=== PATIENT | female | born 1970 | race Caucasian/White ===

== ENCOUNTER 2022-03-07 07:59 | Outpatient (RCR) | payer OTHER, MEDICAID, SELFPAY | END 2022-03-08 11:42 | disposition home or self-care (01) | PROVIDERS: PCP Family Medicine; Visit Provider Family Medicine | DX: M21.41 Flat foot [pes planus] (acquired), right foot (principal); M25.571 Pain in right ankle and joints of right foot; Z51.89 Encounter for other specified aftercare | CPT/HCPCS: 97161; 97760 ==

== ENCOUNTER 2022-03-09 08:59 | Outpatient (CLI) | payer OTHER, MEDICAID, SELFPAY ==
--- NOTE | 2022-03-09 09:15 | MR_ITS ---
[address] [address] Phone:?[phone] Fax:?[phone] Referring Physician Information: Chasidy Milan [address] [facility] [address] Phone:?[phone] Fax:?[phone] Patient:Jorge A Rodriguez D.O.B:?1970 Sex:?Female Phone:?[phone] [facility] MRN:?[id number] Exam Date:?03/09/2022 ? EXAM: MRI EXAMINATION OF THE LEFT KNEE CLINICAL INFORMATION: Left knee pain. No history of surgery to this area. Evaluate articular cartilage. TECHNICAL INFORMATION: And coronal PD, T2 and STIR. Axial PD and T2 fat saturation. Sagittal PD and T2 fat saturation images acquired. INTERPRETATION: Bones: Localized mild subchondral edema signal involves the weightbearing surface of the lateral tibial plateau. No evidence for an occult fracture. No other abnormal bone marrow edema pattern is identified. Ligaments and tendons: The medial collateral ligament is intact, without acute sprain or tear. The iliotibial band, fibular collateral ligament, biceps femoris tendon and popliteus tendon all are intact. The anterior cruciate ligament is intact without acute sprain or tear. The posterior cruciate ligament is intact. Extensor Mechanism: The patellar and quadriceps tendons are intact. The medial and lateral retinacula are intact. Knee Joint: There is a small knee joint effusion. No discrete popliteal cyst. There is no discrete loose body seen within the joint. Medial Compartment: Horizontal signal within the body of the medial meniscus close approaches and likely extends as undersurface tear. No tearing involving the anterior or posterior horns. No displaced flap fragment or parameniscal cyst. Grade II chondromalacia involves the central surface of the medial femoral condyle and continues towards the posterior lateral surface. No other significant changes of chondromalacia. Lateral Compartment: There is no evidence for discrete lateral meniscal tear. No displaced flap fragment or parameniscal cyst. Series 6 image 21 as well as series 8 image 23 demonstrate a 0.8 x 0.6 cm full- thickness chondral defect just posterior to the central surface of the lateral tibial plateau. No other significant changes of chondromalacia. Patellofemoral articulation: There are changes of chondromalacia along the inferior 2/3-3/4 of the patella, including full-thickness loss of the medial facet. Trochlear chondromalacia includes full-thickness loss of the superior one third of the lateral trochlear groove. CONCLUSION:?The image quality is somewhat degraded by body habitus. 1. Horizontal signal within the medial meniscus closely approaches and likely extends as undersurface tear within the body. 2. Grade II chondromalacia of the central surface of the medial femoral condyle continues towards the posterior lateral surface. 3. There is an 8 x 6 mm full-thickness chondral defect of the weightbearing surface of the lateral tibial plateau. No lateral meniscal tear. 4. Patellofemoral chondromalacia includes full-thickness cartilage loss involving the inferior three fourths of the medial patellar facet. 5. There is a small joint effusion, without loose body. [facility] Electronically signed on 03/09/2022 2:00:00 PM by Henry Peters M.D.
--- NOTE | 2022-03-09 10:15 | MR_ITS ---
[address] [address] Phone:?[phone] Fax:?[phone] Referring Physician Information: Chasidy Milan [address] [facility] [address] Phone:?[phone] Fax:?[phone] Patient:Jorge A Rodriguez D.O.B:?1970 Sex:?Female Phone:?[phone] [facility] MRN:?[id number] Exam Date:?03/09/2022 ? EXAM: MRI EXAMINATION OF THE RIGHT KNEE CLINICAL INFORMATION: Right knee pain. No history of surgery to this area. Evaluate articular cartilage. TECHNICAL INFORMATION: Coronal STIR. Axial PD and T2 fat saturation. Sagittal and coronal PD and T2-weighted images acquired. INTERPRETATION: Bones: No appreciable subchondral edema signal or cystic change. No evidence for an occult fracture, osseous contusion or stress reaction. No other abnormal bone marrow edema pattern is identified. Ligaments and tendons: The medial collateral ligament is intact, without acute sprain or tear. The iliotibial band, fibular collateral ligament, biceps femoris tendon and popliteus tendon all are intact. The anterior cruciate ligament is intact without acute sprain or tear. The posterior cruciate ligament is intact. Extensor Mechanism: The patellar and quadriceps tendons are intact. The medial and lateral retinacula are intact. Knee Joint: There is a small knee joint effusion. No discrete popliteal cyst. There is no discrete loose body seen within the joint. Medial Compartment: There is horizontal undersurface tearing involving the body of the medial meniscus. Horizontal signal continues and appears to focally extend as tear within the posterior horn. No displaced flap fragment or parameniscal cyst. There are grade 2 changes of chondromalacia centered lateral to the mid surface of the medial femoral condyle. No other significant changes of chondromalacia. Lateral Compartment: There is no evidence for discrete lateral meniscal tear. No displaced flap fragment or parameniscal cyst. There is a 0.8 x 0.9 cm chondral defect just posterior to the mid weightbearing surface of the lateral femoral condyle. No other significant changes of chondromalacia. Patellofemoral articulation: There are grade 3 and 4 changes of chondromalacia along the inferior two thirds of the patella. Chondromalacia with areas of full- thickness loss of the mid to superior trochlear groove. CONCLUSION:?The image quality is somewhat degraded by body habitus. 1. Horizontal tearing of the body of the medial meniscus. Horizontal signal continues and focally extends as tear of the posterior horn. 2. There are grade II changes of correlation centered lateral to the mid surface of the medial femoral condyle. 3. No lateral meniscus tear. There is an 8 x 9 mm chondral defect of the weightbearing surface of the lateral femoral condyle. 4. Grade III and IV patellofemoral chondromalacia. 5. There is a small knee joint effusion. No evidence for a loose body. [facility] Electronically signed on 03/09/2022 1:54:00 PM by Henry Peters M.D.
== END 2022-03-09 09:00 | disposition home or self-care (01) ==
PROVIDERS: PCP Family Medicine; Visit Provider Physician Assistant
DX: M25.562 Pain in left knee (principal); M25.561 Pain in right knee; M23.221 Derangement of posterior horn of medial meniscus due to old tear or injury, right knee; M94.261 Chondromalacia, right knee; M25.461 Effusion, right knee; S83.242A Other tear of medial meniscus, current injury, left knee, initial encounter; M94.262 Chondromalacia, left knee; M25.462 Effusion, left knee
CPT/HCPCS: 73721

== ENCOUNTER 2022-06-29 06:19 | Day surgery (SDC) | payer OTHER, MEDICAID, SELFPAY ==
[2022-06-29] VITALS (13 sets, daily range): BP systolic 118–133; BP diastolic 69–76; PULSE 54–64; RESP 16; TEMP 36.2–36.8; O2SAT 95–100; BMI 40.3
[2022-06-29] MEDS: BUPIVACAINE 0.5% 30 ML 5 ML INJECTION (07:55)
[2022-06-29] MEDS: lidocaine HCL 2 % MULTIDOSE 20 ML VIAL 7 ML INJECTION (07:55)
--- NOTE | 2022-06-29 08:09 | SUR.OPER ---
Tenex cut time 2mins and 15 seconds
--- NOTE | 2022-06-29 08:38 | P.ORPRC_ITS ---
Procedure Note Date of procedure: 06/29/22 Procedure: SURGEON: Oniel Swartz MD UPHOLSTERY INSTRUCTOR: Usha Larios PA-C PREOPERATIVE DIAGNOSIS: Right elbow common flexor tendinopathy, right upper extremity carpal tunnel syndrome POSTOPERATIVE DIAGNOSIS: Right elbow common flexor tendinopathy, right upper extremity carpal tunnel syndrome NAME OF OPERATION: Percutaneous tenotomy, carpal tunnel release ANESTHESIA: Local ESTIMATED BLOOD LOSS: 5 mL. COMPLICATIONS: None. SPECIMENS: None. DRAINS: None. PREOPERATIVE ANTIBIOTICS: None INDICATIONS: The patient is a 52-year-old with a history of right elbow pain and right hand numbness and tingling, secondary to the above diagnosis. Despite appropriate non operative management, they continue to have symptoms. Operative intervention was recommended. The risks, benefits and expected outcomes were discussed in detail. These included but were not limited to: Infection, bleeding, injury to blood vessel or nerve, venous thromboembolism. All questions were answered to their satisfaction. PROCEDURE: The patient was placed supine on the operating room table. The elbow was imaged in the long axis with the ultrasound transducer. Normal acoustic landmarks were identified. We then sterilely prepped and draped the skin, and used a sterile probe cover with sterile gel. Local anesthesia was established with 10 mL of a solution containing 2 % lidocaine without epinephrine, 0.5% Marcaine without epinephrine and sodium bicarbonate. An 11 blade was used to incise the skin. The Tenex TX 1 micro tip was used to treat the common flexor tendon for a total of 2 minutes, 15 seconds. The incision was Steri-Stripped closed. A dry dressing was applied. Attention then turned to the carpal tunnel release. A sterile tourniquet was placed on the forearm. Local anesthesia was established with 0.5% Marcaine without epinephrine and 2% lidocaine without epinephrine. The limb was elevated the forearm pneumatic tourniquet was inflated to 250 mm of mercury. A longitudinal incision was made centered over the radial border of the ring finger at the base of the palm. Subcutaneous dissection was sharply taken through the palmar fascia and the palmaris brevis to the transverse carpal ligament. The ligament was divided in line with the incision. Proximal and distal dissection was carried with tenotomy and Metzenbaum scissors for a wide decompression of the carpal tunnel. The tourniquet was released , bleeding was controlled with direct pressure. The wound was closed with a 3-0 nylon. A bulky dry dressing was applied, sponge and needle counts were correct x 2. The patient tolerated the procedure well, there were no apparent complications. They were sent to same day surgery in satisfactory condition. Plan: Use of the upper extremity as tolerates. Tylenol, ice and ibuprofen and can be used for pain/discomfort. Discontinue the intraoperative dressing on postoperative day 3 and may get the wound wet as tolerates. Follow up in the office in 2 weeks for a wound check and suture removal.
== END 2022-06-29 08:46 | disposition home or self-care (01) ==
PROVIDERS: PCP Family Medicine; Visit Provider Orthopaedic Surgery
PROC: (CPT 64721; principal; 2022-06-29 07:15)
PROC: (CPT 76942; 2022-06-29 07:15)
DX: G56.01 Carpal tunnel syndrome, right upper limb (principal); M67.823 Other specified disorders of tendon, right elbow
CPT/HCPCS: 64721; 24357; J3490

== ENCOUNTER 2024-07-30 17:00 | Outpatient (CLI) | payer OTHER, BC, SELFPAY ==
--- NOTE | 2024-07-30 17:30 | MR_ITS ---
[address] [address] Phone:?[phone] Fax:?[phone] Referring Physician Information: Oniel Swartz M.D. [address] [facility] [address] Phone:?[phone] Fax:?[phone] Patient:Jorge A Barrientos D.O.B:?1970 Sex:?Female Phone:?[phone] [facility] MRN:?[id number] Exam Date:?07/30/2024 EXAM: MRI of the LEFT SHOULDER, without contrast CLINICAL: Evaluate for rotator cuff tear. COMPARISONS: X-rays dated 07/21/2024. TECHNICAL: Multiplanar multisequence MRI of the left shoulder was obtained. SEDATION: None. CONTRAST: None. FINDINGS: Evaluation of the axial sequences is somewhat limited by motion artifact. Rotator cuff: Supraspinatus/Infraspinatus: There is high-grade near full-thickness to full- thickness tearing involving the insertional fibers of the distal supraspinatus tendon with approximately 8 mm of proximal retraction of torn tendon fibers as seen on coronal series 4 images 8-9. There is mild tendinosis and mild partial interstitial tearing of the distal infraspinatus tendon. No significant fatty atrophy of the supraspinatus muscle belly. There is mild fatty infiltration of the infraspinatus muscle about the myotendinous junction. Teres minor: No tendinosis, tear or atrophy. Subscapularis: Minimal focal partial interstitial tearing of the superior distal tendon on sagittal series 8 image 13 and axial series 3.2 images 45. No fatty atrophy of the muscle belly Bursae: Subacromial-subdeltoid: Minimal bursal fluid. Subcoracoid: No significant bursal fluid. Coracoacromial arch: Acromion morphology: Type II. No os acromiale. Acromiohumeral space: Within normal limits. Coracohumeral space: Within normal limits. Biceps tendon, long head: Intraarticular and extraarticular segments intact without rupture, tendinopathy or displacement. Glenohumeral joint: Physiologic volume of joint fluid. Articular cartilage: Evaluation is relatively limited. No convincing chondral defects identified as visualized. Capsule: No convincing evidence of capsular thickening or injury. Labrum: There is attenuation/degeneration of the superior labrum extending into the posterior labrum. No perilabral cyst identified. Bones: No suspicious marrow signal alteration, fracture or dislocation. Acromioclavicular joint: Moderate changes of arthrosis. No AC joint injury/widening. IMPRESSION: 1. High-grade near full-thickness to full-thickness tearing involving the insertional fibers of the distal supraspinatus tendon. Mild tendinosis and mild partial interstitial tearing of the distal infraspinatus tendon. Minimal partial interstitial insertional tearing of the superior distal subscapularis tendon. 2. Attenuation/degeneration of the superior labrum extending into the posterior labrum. 3. Moderate AC joint arthrosis. 4. No evidence of fracture. The long head biceps tendon is intact. [facility] Electronically signed on 07/31/2024 12:00:00 PM by Gregor Morales D.O.
--- NOTE | 2024-07-30 18:15 | MR_ITS ---
[address] [address] Phone:?[phone] Fax:?[phone] Referring Physician Information: Oniel Swartz M.D. [address] [facility] [address] Phone:?[phone] Fax:?[phone] Patient:Jorge A Barrientos D.O.B:?1970 Sex:?Female Phone:?[phone] [facility] MRN:?[id number] Exam Date:?07/30/2024 EXAM: MRI of the LEFT KNEE, without contrast CLINICAL: Evaluate for lateral meniscal tear. COMPARISONS: MRI 03/09/2022. X-rays 07/21/2024. TECHNICAL: Multiplanar multisequence MRI of the left knee was obtained. SEDATION: None. CONTRAST: None. FINDINGS: Ligaments: ACL: Intact and unremarkable. PCL: Intact and unremarkable. MCL: Intact and unremarkable. LCL: Intact and unremarkable. Posterolateral corner: Popliteus, biceps femoris, iliotibial band, and the popliteofibular ligament appear intact. Posteromedial corner: Semimembranosus, pes anserine tendons and posterior oblique ligament appear intact. Extensor mechanism: Patellar tendon: Intact, without tendinopathy. Quadriceps tendon: Intact, without tendinopathy. Retinacula: Medial and lateral retinacula are intact. Fat pads: Unremarkable infrapatellar Hoffa's, quadriceps and prefemoral fat pads. Patellofemoral joint: Patella: Chondral loss involving the patella appears similar to prior exam. Trochlea: Chondral loss involving the trochlea appears similar to prior exam. Medial compartment: Medial meniscus: There is horizontal tearing involving the undersurface of the posterior horn on sagittal series 6 images 9-12. Also suspect mild partial tearing of the posterior root on sagittal series 6 image 15 with mild adjacent reactive marrow edema involving the lateral aspect of the posterior medial tibial plateau adjacent to the tibial attachment site of the posterior root. No meniscal displacement. Medial cartilage: Chondral loss involving the weightbearing medial femoral condyle appears similar to prior examination. Medial tibial plateau cartilage is preserved. Lateral compartment: Lateral meniscus: Ill-defined complex tearing involving the anterior horn appears mildly increased compared to prior exam as seen on sagittal series 6 image 23-25. Remainder of the meniscus appears intact. No meniscal displacement. Lateral cartilage: Small segment of deep chondral delamination involving the weightbearing lateral femoral condyle on coronal series 8 image 22 and sagittal series 6 image 22 is new compared to prior exam. There is deep chondral fissuring involving the lateral tibial plateau in the region of the prior small segment of high-grade/full-thickness chondral loss as seen on coronal series 8 image 22-23. Knee joint: Effusion: Small left knee effusion. Intra-articular bodies:?No convincing bodies identified. Popliteal cyst: None. Bones: No suspicious bone marrow signal alteration or fracture line. There is increased edema involving the anterior extending into the lateral knee subcutaneous soft tissues. IMPRESSION: 1. Horizontal undersurface tearing involving the posterior horn medial meniscus and suspected mild partial tearing of the posterior root medial meniscus with associated reactive marrow edema involving the lateral aspect of the posterior medial tibial plateau adjacent to the posterior root attachment. Findings are new compared to prior exam. 2. Tearing of the anterior horn lateral meniscus appears mildly increased compared to prior examination. 3. Small segment of deep chondral delamination involving the weightbearing lateral femoral condyle is new compared to prior exam. There is deep chondral fissuring in the region of the previously identified segment of high-grade/full-thickness chondral loss involving the lateral tibial plateau. Chondral loss involving the patellofemoral compartment and weightbearing medial femoral condyle appears similar to prior exam. 4. No evidence of ligamentous injury or fracture. [facility] Electronically signed on 07/31/2024 11:19:00 AM by Gregor Morales D.O.
== END 2024-07-30 17:01 | disposition home or self-care (01) ==
LOC: MRI 17:01
PROVIDERS: PCP Family Medicine; Visit Provider Orthopaedic Surgery
DX: M25.562 Pain in left knee (principal); S83.242A Other tear of medial meniscus, current injury, left knee, initial encounter; S83.282A Other tear of lateral meniscus, current injury, left knee, initial encounter; M17.0 Bilateral primary osteoarthritis of knee; M75.102 Unspecified rotator cuff tear or rupture of left shoulder, not specified as traumatic; M19.012 Primary osteoarthritis, left shoulder; M75.52 Bursitis of left shoulder
CPT/HCPCS: 73221; 73721

== ENCOUNTER 2025-03-10 06:58 | Day surgery (SDC) | payer BC, SELFPAY ==
[2025-03-10] VITALS (20 sets, daily range): BP systolic 99–156; BP diastolic 61–96; PULSE 47–70; RESP 11–18; TEMP 35.9–36.9; O2SAT 93–99; BMI 44.4
[2025-03-10] MEDS: SCOPOLAMINE 1 MG/3 DAY PATCH 1 PATCH TRANSDERMA (07:42)
--- NOTE | 2025-03-10 08:44 | SUR.PREOP ---
Patient stated to nurse she had consumed coffee with creamer at 5a day of procedure. PALLET STONE POSITIONER and surgeon were notified and stated procedure would be delayed due to patient consuming creamer. Patient was notified by nurse and PALLET STONE POSITIONER. Patient and is very upset regarding delaying surgery, patient advocate was notified and left message to see if she could also come speak to patient.
[2025-03-10] MEDS: ACETAMINOPHEN 500 MG TABLET 1000 MG PO ×2 (12:20→19:38)
[2025-03-10] MEDS: CELECOXIB 200 MG CAPSULE PO ×2 (12:20→20:39)
[2025-03-10] MEDS: SODIUM CHLORIDE 0.9 % (FLUSH) 10 ML SYRINGE IVF (13:00)
[2025-03-10] MEDS: MIDAZOLAM HCL 1 MG/ML inj IVP ×2 (13:00→13:19)
--- NOTE | 2025-03-10 13:17 | SUR.PREOP ---
Nerve block on left knee timeout at 1245 with DANIEL Sandhu, DANIEL Patterson, and AZUL Aguilar present.
[2025-03-10] MEDS: LACTATED RINGERS 1000 ML 1,000 ML 100 ML IV ×2 (13:20→14:32)
--- NOTE | 2025-03-10 13:25 | W.PM.NB ---
Nerve Block Nerve Block Time Seen by Provider: 13:15 Date Seen: 03/10/25 Type of block requested by surgeon for post-operative analgesia: femoral Side: left Time out performed: Yes Verification of patient name: Yes Verification of date of : Yes Site marking: site marked Name of person performing procedure: Dangelo Whipple Continuous monitoring Was continuous monitoring of O2 sat, B/P, employee relations assistant, recorded every 15 minutes?: Yes Procedure Checklist: sterile prep and needles Ultrasound guided. Images saved: Yes Medications given in 5ml increments after negative aspiration: Ropivicaine %: 0.5 mL: 20 Needle gauge: 20 Precedex (mcg): 25 Patient tolerated procedure well: Yes Block Charges Block Charge (with Pro Fee): Femoral Nerve Use of Ultrasound Machine for Block: Yes- US Guidance/pain block
--- NOTE | 2025-03-10 13:29 | W.PM.NB ---
Nerve Block Nerve Block Time Seen by Provider: 13:20 Date Seen: 03/10/25 Type of block requested by surgeon for post-operative analgesia: geniculars Side: left Time out performed: Yes Verification of patient name: Yes Verification of date of : Yes Site marking: site marked Name of person performing procedure: Edson Whipple Continuous monitoring Was continuous monitoring of O2 sat, B/P, cardiac cath lab radiology technologist, recorded every 15 minutes?: Yes Procedure Checklist: sterile prep, needles and gloves Medications given in 5ml increments after negative aspiration: Ropivicaine %: 0.5 mL: 12 Needle gauge: 25 Patient tolerated procedure well: Yes Block Charges Block Charge (with Pro Fee): Genicular Nerve Block
[2025-03-10] MEDS: TRANEXAMIC ACID 100 MG/ML INJ 1000 MG IV (14:04)
--- NOTE | 2025-03-10 14:43 | PM.IMCN1 ---
Date of Consult Patient: Pranav Patient Consult date: 03/10/25 Primary Care Provider: Emigdio Luo MD Consult Narrative Reason for consult: Medical management of comorbidities Narrative: Whit Barrientos is a 54 year old female who presented to the hospital today for an elective L TKA. There were no surgical or anesthetic complications noted during procedure. Patient's H&P reviewed, PCP is Dr. Luo in [place]. Past medical history significant for: epilepsy (sounds like absence seizures after discussion, has these daily; follows with an [employer] in [place] for Lamictal management), L sided breast cancer (invasive ductal carcinoma diagnosed 2022, s/p lumpectomy, radiation, and Endocrine therapy with Arimidex), GERD. History of blood clots: No Postoperative plan: Home with Review of Systems Status of ROS: Reports: 10 or more systems reviewed and unremarkable except as noted in History and below [facility] Medical History (Updated 03/10/25 @ 20:10 by Rebecca Mclean MD) GERD (gastroesophageal reflux disease) ?K21.9 - Gastro-esophageal reflux disease without esophagitis (ICD-10) Gastrointestinal problem ?R19.8 - Other specified symptoms and signs involving the digestive system and abdomen (ICD-10) Eating disorder ?F50.9 - Eating disorder, unspecified (ICD-10) Anxiety ?F41.9 - Anxiety disorder, unspecified (ICD-10) Depression ?F32.A - Depression, unspecified (ICD-10) Arthritis ?M19.90 - Unspecified osteoarthritis, unspecified site (ICD-10) Seizures ?R56.9 - Unspecified convulsions (ICD-10) Surgical History (Updated 03/10/25 @ 16:17 by Gisel Oliver ~ YOUTH SUPPORT WORKER, YOUTH SUPPORT WORKER) Status post left knee replacement (03/10/25) ?Z96.652 - Presence of left artificial knee joint (ICD-10) History of bladder repair surgery ?Z98.890 - Other specified postprocedural states (ICD-10) History of elbow surgery (04/01/13) ?Z98.890 - Other specified postprocedural states (ICD-10) History of left oophorectomy ?Z90.721 - Acquired absence of ovaries, unilateral (ICD-10) Status post left breast lumpectomy (03/19/23) ?Z98.890 - Other specified postprocedural states (ICD-10) Plantar fasciitis of right foot (2001) ?M72.2 - Plantar fascial fibromatosis (ICD-10) History of cholecystectomy ?Z90.49 - Acquired absence of other specified parts of digestive tract (ICD-10) History of hysterectomy ?Z90.710 - Acquired absence of both cervix and uterus (ICD-10) H/O bariatric surgery ?Z98.84 - Bariatric surgery status (ICD-10) History of carpal tunnel release (06/29/22) ?Z98.890 - Other specified postprocedural states (ICD-10) History of elbow surgery (03/20/19) ?Z98.890 - Other specified postprocedural states (ICD-10) Family History Father No problems noted. Mother No problems noted. Other Cancer Social History (Updated 06/11/23 @ 09:40 by Adry Reid ~ [facility]) Narrative: Marital Status: Single Alcohol Use: No Recreational Drug Use: No What is your current living situation?: I presently have a place to live In past 12 months, lack of transportation kept you from medical appts, meetings, work, or getting things needed for daily living: no In the past 12 mos, have been you worried that your food would run out before you had money to buy more?: declined to answer In the past 12 mos, the food you bought just didn't last and you didn't have money to buy more?: declined to answer Smoking Status: Never smoker Do you use any of these nicotine containing products: None Second hand tobacco smoke exposure: No How often do you have a drink containing alcohol: never AUDIT-C Alcohol total score: 0 Non-prescribed substance use: denies use Caffeine: Yes How often does anyone, including family, friends and others, physically hurt you: never How often does anyone, including family, friends and others, insult or talk down to you: never How often does anyone, including family, friends and others, threaten you with harm: never How often does anyone, including family, friends and others, scream or curse at you: never Meds Home Medications and Allergies Home Medications ?Medication ?Instructions ?Recorded ?Confirmed ?Type calcium carbonate 600 mg PO DAILY 02/24/22 03/10/25 History cholecalciferol (vitamin D3) 125 125 mcg PO DAILY 02/24/22 03/10/25 History mcg (5,000 unit) capsule lamotrigine 100 mg tablet 300 mg PO BID 06/11/23 03/10/25 History omeprazole 20 mg capsule,delayed 40 mg PO DAILY 06/11/23 03/10/25 History release magnesium oxide 400 mg PO DAILY 03/06/25 03/10/25 History acetaminophen 500 mg tablet 1,000 mg PO Q6H PRN 03/10/25 03/10/25 History (Acetaminophen Extra Strength) cyanocobalamin (vitamin B-12) 500 1,000 mcg PO DAILY 03/10/25 03/10/25 History mcg tablet gabapentin 300 mg capsule 600 mg PO HS 03/10/25 03/10/25 History ibuprofen 800 mg tablet 800 mg PO Q6H PRN 03/10/25 03/10/25 History Allergies Allergy/AdvReac Type Severity Reaction Status Date / Time adhesive Allergy Unknown Verified 03/10/25 08:13 morphine Allergy Unknown Nausea Verified 03/10/25 08:13 oxycodone Allergy Unknown Nausea Verified 03/10/25 08:13 penicillin V Allergy Unknown Verified 03/10/25 08:13 topiramate Allergy Unknown Verified 03/10/25 08:13 Sulfa (Sulfonamide AdvReac Unknown Verified 03/10/25 08:13 Antibiotics) Exam Narrative: Exam Narrative: GEN: Alert and awake answering questions appropriately HEENT: EOMIs bilaterally, no scleral icterus CV: RRR, + systolic murmur without concerning features R: LCTA bilaterally without concerning wheezing Ext: wwp, no concerning edema Skin: No concerning skin lesions or rashes on exposed skin Neuro: No focal deficits or resting tremor Psych: Appropriate Const: Vital Signs, click to edit/add: Vital Signs - 24 hr 03/10/25 08:15 03/10/25 12:44 03/10/25 13:00 Temperature 98.2 F Pulse Rate 65 68 70 Respiratory Rate 16 16 18 Blood Pressure 125/85 138/78 146/88 H Pulse Oximetry 98 98 98 Oxygen Delivery Me thod Room Air Nasal Cannula Nasal Cannula Oxygen Flow Rate 3 3 Assessment and Plan Assessment and plan (1) Status post left knee replacement: Problem comment: - 03/10/25, Dr. Swartz Status: Acute (2) Seizures: Problem comment: - continue home dose of Lamictal, seizure precautions ordered Status: Acute Plan - pain management and prophylaxis per orthopedic surgery team - continue home medications for comorbidities - anticipate routine postoperative course - updated bedside, questions answered
--- NOTE | 2025-03-10 15:15 | CRLHL7_ITS ---
For Patients: As a result of the Cures Act, medical imaging exams and procedure reports are released immediately into your electronic medical record. You may view this report before your referring provider. If you have questions, please contact your health care provider. INDICATION: , total knee arthroplasty, post operative, post operative left total knee arthroplasty TECHNIQUE: Knee radiograph 2 views left COMPARISON: 07/21/2024 FINDINGS: Bone: No acute fractures or aggressive bone lesions are identified. Joint: The patient is status post a total knee arthroplasty with medullary stems and patellar resurfacing. No significant knee effusion is seen. Soft tissue: Anterior subcutaneous gas and joint gas are present from recent surgery. No radiopaque foreign bodies are seen. IMPRESSION: 1. There is an unremarkable postoperative appearance of the knee arthroplasty. Dictated by: Jamarcus Mae MD @ 03/11/2025 01:18:18 (Electronically Signed)
--- NOTE | 2025-03-10 15:19 | PM.ORPRC ---
Procedure Note Date of procedure: 03/10/25 Procedure: PREOPERATIVE DIAGNOSIS: Left knee osteoarthritis POSTOPERATIVE DIAGNOSIS: Left knee osteoarthritis NAME OF OPERATION: Left total knee arthroplasty SURGEON: Oniel Swartz MD STILL OPERATOR: Usha Larios PA-C ANESTHESIA: Spinal ESTIMATED BLOOD LOSS: 0 mL COMPLICATIONS: None SPECIMENS: None DRAINS: None PREOPERATIVE ANTIBIOTICS: Ancef 2 grams, antibiotic impregnated cement IMPLANTS: 1. J&J Attune revision CRS #5 posterior stabilized femur, 14 mm x 50 mm cemented stem 2. #4 revision CRS fixed-bearing tibia, 14 mm x 50 mm cemented stem 3. # 5 posterior stabilized, 5 mm fixed-bearing polyethylene 4. 38 patella INDICATIONS: The patient is a 54-year-old with a longstanding history of severe, unrelenting left knee pain secondary to end-stage (grade IV) left knee osteoarthritis. Despite appropriate nonoperative management, including activity modification, anti-inflammatories, [id number] pain medication, bracing, physical therapy, and injections they continue to have pain and disability. Operative intervention was offered. The risks, benefits and expected outcomes were discussed in detail. These included but were not limited to: Infection, bleeding, injury to blood vessel or nerve, venous thromboembolism. All questions were answered to their satisfaction. Use of an psychiatric nursing assistant was necessary throughout the case for patient positioning and safety, soft tissue retraction, and closure. A modifier 22 should be added to this case. The patient's weight of 117 kg with a BMI of 45 made the exposure difficult. There was a 50 mm deep layer of adipose over the extensor mechanism. In order to reduce the risk of aseptic loosening given her size, stemmed components were used. These factors added time and cost to complete the case. PROCEDURE: Spinal anesthesia was administered. The patient was placed supine on the operating table. The psychiatric nursing assistant made sure the patient was positioned appropriately. The lower extremity was prepped and draped in the usual sterile fashion. The limb was exsanguinated with the Fredis bandage. The pneumatic tourniquet was inflated to 300 mmHg. A standard anterior incision was made with the knee in flexion. Subcutaneous dissection was sharply taken through fascial layer #1. Full-thickness medial and lateral flaps were elevated. The psychiatric nursing assistant retracted the soft tissues and protected them throughout the case. A standard subvastus approach was made. The patella was subluxed. The infrapatellar fat pad was debrided. The menisci and cruciate ligaments were sharply d?brided. Marginal osteophytes were d?brided with the rongeur. The drill was used to penetrate the femoral canal. The canal was aspirated and irrigated with pulse lavage. The intramedullary femoral guide was placed for a 5-degree valgus cut, removing 10 mm off the distal femur. The saw was used to make the cut. Whitesides line and the trans epicondylar axis were marked. The femoral sizing guide was pinned onto the distal femur. Three degrees of external rotation nicely parallels the transepicondylar axis. Pins were placed for posterior referencing. The four-in-one cutting guide was pinned onto the distal femur. The anterior, posterior, and chamfer cuts were made. The psychiatric nursing assistant protected the collateral ligaments. The revision trial was placed. The box cuts were made. The drill was used x2. The stemmed, boxed trial was placed and was an excellent fit. Attention was then turned to the proximal tibia. The intramedullary tibial guide was placed for a neutral varus/valgus cut with 5 degrees of posterior slope, removing 2 mm based off the medial tibial surface. The psychiatric nursing assistant protected the collateral ligaments and the neurovascular bundle. The saw was used to make the cut. Trial components were placed. The knee was nicely balanced in both flexion and extension. The trial components were removed. The tray was placed in appropriate rotation, parallel to our tibial cutting pins. It was pinned by the psychiatric nursing assistant and the drill x2 was used. The stemmed tibial trial was placed. The punch was used. The tray was removed. The punch was used again. Attention was then turned to the patella. Marshall patellar thickness was 20 mm. The lobster claw resection guide was used with the 7.5 mm manjinder. The saw was used to make the cut. Drill holes were made by the psychiatric nursing assistant. The trial was placed and was an excellent fit. Cancellous surfaces were irrigated with pulse lavage and thoroughly dried by the psychiatric nursing assistant. We cemented the tibial component, then the femoral component. We impacted the 5 mm polyethylene onto the tibial tray. The knee was brought into full extension. We then cemented the patellar component. Excessive cement was removed. The cement was allowed to harden. The knee was taken through a range of motion and was found to be nicely balanced in both flexion and extension. The patella tracks centrally. The psychiatric nursing assistant did a three minute dilute Betadine solution soak. The psychiatric nursing assistant irrigated the wound with 3 liters of normal saline via pulse lavage. The psychiatric nursing assistant reapproximated the extensor mechanism with #1 Vicryl in an interrupted [id number] fashion. The psychiatric nursing assistant then ran the extensor mechanism with a #1 PDO Stratafix. The psychiatric nursing assistant closed the subcutaneous tissues with a 3-0 Stratafix and the skin with a running 3-0 Stratafix in a subcuticular fashion. Glue was used to seal the skin. The psychiatric nursing assistant placed a dry dressing. Sponge and needle counts were correct x2. The patient tolerated the procedure well. There were no apparent complications. They were carefully transferred to the hospital bed and taken to the postanesthesia care unit in satisfactory condition. PLAN: The patient will be mobilized with physical therapy. Aspirin will be used for DVT prophylaxis. They will be discharged to home once medically appropriate.
--- NOTE | 2025-03-10 16:13 | P.ANES_ITS ---
Anesthesia Charges Start Date/Time Anesthesia Start Date: 03/10/25 Anesthesia Start Time: 13:27 Stop Date/Time Anesthesia Stop Date: 03/10/25 Anesthesia Stop Time: 16:12 Coding CPT Codes CPT Codes: ANESTH KNEE ARTHROPLASTY - 07792 ([id number]) P3 - PATIENT W/SEVERE SYS DISEASE, QZ - RETAIL DEPARTMENT SUPERVISOR SVC W/O FLAME ANNEALING MACHINE SETTER BY
--- NOTE | 2025-03-10 16:13 | W.ANESCHARGE ---
Anesthesia Charges Start Date/Time Anesthesia Start Date: 03/10/25 Anesthesia Start Time: 13:27 Stop Date/Time Anesthesia Stop Date: 03/10/25 Anesthesia Stop Time: 16:12 Coding CPT Codes CPT Codes: ANESTH KNEE ARTHROPLASTY - 75103 ([id number]) P3 - PATIENT W/SEVERE SYS DISEASE, QZ - BOATSWAIN'S MATE SVC W/O SUPERVISOR PARTICLEBOARD BY
--- NOTE | 2025-03-10 16:56 | SUR.PHASEI ---
patient met discharge criteria per anesthesia
[2025-03-10] MEDS: OMEPRAZOLE 20 MG CAPSULE DR 40 MG PO (19:32)
[2025-03-10] MEDS: CEFAZOLIN 2 GM in 0.9 % SODIUM CHLORIDE Mini-bag 100 ML IVPB (19:34)
[2025-03-10] MEDS: ONDANSETRON 2 MG/ML inj 4 MG IVP (20:38)
[2025-03-10] MEDS: SENNOSIDES 1 TAB TABLET 2 TAB PO (20:38)
[2025-03-10] MEDS: ASPIRIN 81 MG TABLET EC PO (20:39)
--- NOTE | 2025-03-10 23:43 | PC.NURSE ---
End of shift note Patient has been pleasant and cooperative through out shift. Incision dressing intact and clear. Pain has been well controlled throughout shift. Patient has a history of micro-absent seizures, and states that they only last up to [address] Mclean ordered seizure precautions but patient declined. Patient has been bradycardiac through out shift, MD was informed. No telemetry was ordered. Patient has a left arm restriction (lumpectomy with lymph node removal), and as per patient request, all blood pressures have been measured in right calf. Patient declined PM dose of Lamictal, stating that she never takes a PM dose and she will take it at home. Patient is requesting discharge by 11:30 am. Patient moves with assist of one, and tolerates walking to restroom and back very well with walker and gait belt. Patient has one emesis around 19:30, after eating her dinner and reported nausea. Zofran was administered IV.
[2025-03-11] MEDS: ACETAMINOPHEN 500 MG TABLET 1000 MG PO ×2 (01:09→05:33)
[2025-03-11] MEDS: ONDANSETRON 2 MG/ML inj 4 MG IVP ×2 (01:15→08:13)
[2025-03-11 03:00] VITALS: BP 152/75; PULSE 58; RESP 16; TEMP 36.7; O2SAT 95
[2025-03-11] MEDS: PROCHLORPERAZINE 5 MG/ML VIAL IV (03:41)
[2025-03-11] MEDS: CEFAZOLIN 2 GM in 0.9 % SODIUM CHLORIDE Mini-bag 100 ML IVPB (04:52)
[2025-03-11 07:00] VITALS: BP 156/78; PULSE 72; PULSE 87; RESP 16; RESP 18; TEMP 36.7; O2SAT 93; O2SAT 97
[2025-03-11 07:36] LABS: Hematocrit 38.5 % (33.0-51.0); Hemoglobin* 12.6 gm/dL (12.0-16.0); Immature Granulocytes Abs Auto 0.01 K/uL (0.00-0.30); Immature Granulocytes Pct Auto 0.1 %; Lymphocytes Absolute Auto 1.10 K/uL (0.90-2.90); Mean Corpuscular HGB Conc 33 gm/dL (32-36); Mean Corpuscular Hemoglobin 30 pg (26-34); Mean Corpuscular Volume 91 fL (80-100); RDW Coefficient of Variation % 13.1 % (11.5-15.5); Red Blood Count 4.23 m/uL (4.00-5.20); White Blood Count* 10.21 K/uL (4.50-11.00)
[2025-03-11 07:37] LABS: Slide Review Reflex No
[2025-03-11 07:49] LABS: Chloride* 105 mmol/L (96-114); Potassium* 4.2 mmol/L (3.6-5.1); Sodium* 137 mmol/L (135-149)
[2025-03-11 07:52] LABS: Anion Gap 8 mEq/L (7-15); Blood Urea Nitrogen* 14 mg/dL (7-30); Calcium* 9.1 mg/dL (8.4-10.6); Carbon Dioxide* 24 mmol/L (20-32); Creatinine* 0.7 mg/dL (0.5-1.5); Est. Creatinine Clearance* 79.34; Estimated Glomerular Filt Rate 103 ml/min; Glucose* 111 mg/dL (60-115)
[2025-03-11] MEDS: SODIUM CHLORIDE 0.9 % (FLUSH) 10 ML SYRINGE IVF (08:13)
--- NOTE | 2025-03-11 08:39 | P.ORPN_ITS ---
Subjective Subjective Time Seen by Provider: 07:15 Date Seen: 03/11/25 Principal diagnosis: Day 1 s/p left total knee arthroplasty Interval history: Whit is resting comfortably in her recliner. Overnight, I received a call that Whit was struggling with nausea that failed to respond to Zofran. I ordered Compazine 5 mg Q6H PRN. Whit explains this improved her nausea. She c/o moderate to severe left knee that is somewhat well managed with hydromorphone and acetaminophen PRN. Denies postop chest pain, SOB, fever, numbness and tingling distally. Denies bowel movement postoperatively, but admits to flatulence. Patient is requesting to be discharged this morning before 11am. Ortho Exam Narrative Exam Narrative: Incision/Dressing: Dressing appears clean and dry. No drainage present. Mepilex intact. Left knee appears moderately swollen but supple with no obvious erythema, fluctuance or excessive warmth. No ecchymosis or erythematous streaking. Warmth around the wound is appropriate. Ice is being utilized as needed. CMS: Intact distally with 2+ Dorsalis pedis and Posterior Tibial pulses. 5/5 motor strength dorsal and plantar flexion. Confirmed sensation distally. Calf: Bilateral calves are supple, with no swelling, pain, tenderness, erythema, discoloration or coolness to the touch. Constitutional: Patient is alert and oriented x3. Patient is in no acute distress and converses without labored breathing. Patient is able to make decisions and demonstrates good insight. Patient is pleasant and cooperative. Affect is full range and appropriate for the circumstances. Const Vital Signs, click to edit/add: Vital Signs - 24 hr 03/10/25 12:44 03/10/25 13:00 03/10/25 16:10 Temperature 97.2 F L Pulse Rate 68 70 63 Pulse Rate [Pulse Oximeter] Respiratory Rate 16 18 11 L Blood Pressure 138/78 146/88 H 99/61 Blood Pressure [Right Arm] Blood Pressure [Right Calf] Pulse Oximetry 98 98 97 Oxygen Delivery Method Nasal Cannula Nasal Cannula Room Air Oxygen Flow Rate 3 3 03/10/25 16:15 03/10/25 16:20 03/10/25 16:25 Temperature 97.2 F L 97.2 F L 97.2 F L Pulse Rate 63 57 L 47 L Pulse Rate [Pulse Oximeter] Respiratory Rate 12 12 12 Blood Pressure 118/64 109/69 127/69 Blood Pressure [Right Arm] Blood Pressure [Right Calf] Pulse Oximetry 96 96 97 Oxygen Delivery Method Room Air Room Air Room Air Oxygen Flow Rate 03/10/25 16:30 03/10/25 16:35 03/10/25 16:40 Temperature 97.2 F L 97.2 F L 97.1 F L Pulse Rate 47 L 55 L 49 L Pulse Rate [Pulse Oximeter] Respiratory Rate 18 18 18 Blood Pressure 128/72 118/75 116/81 Blood Pressure [Right Arm] Blood Pressure [Right Calf] Pulse Oximetry 98 98 97 Oxygen Delivery Method Room Air Room Air Room Air Oxygen Flow Rate 03/10/25 17:04 03/10/25 17:04 03/10/25 17:19 Temperature 96.7 F L 96.7 F L Pulse Rate Pulse Rate [Pulse Oximeter] 52 L 52 L 48 L Respiratory Rate 14 14 16 Blood Pressure Blood Pressure [Right Arm] 134/76 134/76 130/77 Blood Pressure [Right Calf] Pulse Oximetry 98 99 96 Oxygen Delivery Method Room Air Room Air Room Air Oxygen Flow Rate 03/10/25 17:30 03/10/25 17:45 03/10/25 18:15 Temperature 97.6 F Pulse Rate Pulse Rate [Pulse Oximeter] 49 L 50 L 61 Respiratory Rate 16 16 Blood Pressure Blood Pressure [Right Arm] 132/84 126/85 150/96 H Blood Pressure [Right Calf] Pulse Oximetry 98 93 98 Oxygen Delivery Method Room Air Room Air Room Air Oxygen Flow Rate 03/10/25 18:45 03/10/25 21:04 03/10/25 21:45 Temperature 97.6 F 97.6 F Pulse Rate 70 Pulse Rate [Pulse Oximeter] 50 L 59 L Respiratory Rate 16 18 Blood Pressure 139/75 Blood Pressure [Right Arm] 145/87 H Blood Pressure [Right Calf] 146/88 H Pulse Oximetry 98 98 Oxygen Delivery Method Room Air Room Air Room Air Oxygen Flow Rate 03/10/25 22:45 03/10/25 23:00 03/10/25 23:00 Temperature 98.4 F 98.1 F Pulse Rate 50 L Pulse Rate [Pulse Oximeter] 57 L Respiratory Rate 18 16 Blood Pressure 131/77 Blood Pressure [Right Arm] Blood Pressure [Right Calf] 156/88 H Pulse Oximetry 98 96 96 Oxygen Delivery Method Room Air Room Air Room Air Oxygen Flow Rate 03/11/25 03:00 Temperature 98.1 F Pulse Rate Pulse Rate [Pulse Oximeter] 58 L Respiratory Rate 16 Blood Pressure Blood Pressure [Right Arm] Blood Pressure [Right Calf] 152/75 H Pulse Oximetry 95 Oxygen Delivery Method Room Air Oxygen Flow Rate Assessment and Plan Assessment and plan (1) Status post left knee replacement: Problem details: - 03/10/25, Dr. Swartz Status: Acute (2) Nausea: Status: Acute Plan - Complete 23 hour perioperative antibiotics. - PT/OT consults for education and assistance. - Weight bear as tolerated with a walker for assistance. - Prescribed analgesics as needed. Patient is content with current narcotic medications. Minimize narcotic pain medication use; wean off and discontinue as soon as possible. Script will be provided for Compazine for nausea. - DVT prophylaxis: aspirin 81 mg BID x 30 days. Also, frequent ambulation and ankle pumps when sedentary. - Social consult for discharge planning. - Anticipate patient will be discharged to home prior to 11am if the patient remains medically stable, pain is controlled and is safe with ambulation. - Return to clinic in 1 week for a wound check. Mepilex dressing will be removed in 7 days or at her first postop visit. Remove sooner if dressing becomes satura christie. - Return to clinic in [address] Swartz. - Phone Orthopedics with any questions or concerns. [phone]
[2025-03-11] MEDS: OMEPRAZOLE 20 MG CAPSULE DR 40 MG PO (09:27)
[2025-03-11] MEDS: CELECOXIB 200 MG CAPSULE PO (09:27)
[2025-03-11] MEDS: CALCIUM CARBONATE 500 MG TABLET PO (09:27)
[2025-03-11] MEDS: ASPIRIN 81 MG TABLET EC PO (09:27)
[2025-03-11] MEDS: SENNOSIDES 1 TAB TABLET 2 TAB PO (09:28)
[2025-03-11] MEDS: MAGNESIUM OXIDE 400 MG TABLET PO (09:28)
--- NOTE | 2025-03-11 09:37 | PC.SOCIAL ---
Discharge planning: SW met with patient to determine if there was any support or resources patient needs prior to discharge. Patient states that she has everything she needs and has no concerns. Patient appeared somber and states that she did not sleep very much last night. SW to f/u as needed.
--- NOTE | 2025-03-11 11:18 | PC.NURSE ---
Nursing Care Hours: [id number] pt this shift calm and cooperative, alert and oriented. Flat affect. Pain rated 8/10, down to 7/10 after PO pain meds. Intermittent nausea, treated with aromatherapy and IV antiemetic. VSS. IV removed for discharge. Instructions went over with pt and spouse, all questions and concerns addressed. Wheeled out to vehicle in stable condition.
== END 2025-03-11 10:30 | disposition home or self-care (01) ==
LOC: OR 06:59 → MEDSURG 07:00
PROVIDERS: Family Medicine; PCP Family Medicine; Visit Provider Orthopaedic Surgery
PROC: (CPT 27447; principal; 2025-03-10 13:30)
DX: M17.12 Unilateral primary osteoarthritis, left knee (principal); G89.18 Other acute postprocedural pain; G40.909 Epilepsy, unspecified, not intractable, without status epilepticus; R11.0 Nausea; K21.9 Gastro-esophageal reflux disease without esophagitis; Z85.3 Personal history of malignant neoplasm of breast; F41.9 Anxiety disorder, unspecified; F32.A Depression, unspecified; F50.9 Eating disorder, unspecified
CPT/HCPCS: 27447; 01402; 36415; 64447; 64454; 73560; 76942; 80048; 85025; 97110; 97116; 97162; 97165; 97535; A9270; C1776; J0690; J0780; J1100; J1630; J2250; J2405; J2704; J2795; J3010; J7120

== ENCOUNTER 2025-08-03 10:42 | Day surgery (SDC) | payer BC, SELFPAY ==
--- NOTE | 2025-07-31 14:52 | P.ANES_ITS ---
Anesthesia Charges Start Date/Time Anesthesia Start Date: 07/31/25 Stop Date/Time Anesthesia Stop Date: 07/31/25 Coding CPT Codes CPT Codes: ANESTH HYSTEROSCOPE/GRAPH - 15364 ([id number]) QK - SPRING SETTER 2-4 CNCRNT ANES PROC, QX - MEDICAL BILL PROCESSOR SVC W/ MD MED DIRECTION, P2 - PATIENT W/MILD SYST DISEASE
--- NOTE | 2025-07-31 14:52 | W.ANESCHARGE ---
Anesthesia Charges Start Date/Time Anesthesia Start Date: 07/31/25 Stop Date/Time Anesthesia Stop Date: 07/31/25 Coding CPT Codes CPT Codes: ANESTH HYSTEROSCOPE/GRAPH - 75012 ([id number]) QK - SKEIN YARN DYER HELPER 2-4 CNCRNT ANES PROC, QX - FIREARMS SALES ASSOCIATE SVC W/ MD MED DIRECTION, P2 - PATIENT W/MILD SYST DISEASE
[2025-08-03] VITALS (10 sets, daily range): BP systolic 109–148; BP diastolic 60–85; PULSE 48–84; RESP 12–20; TEMP 36.1–37; O2SAT 94–100; BMI 43.1
--- NOTE | 2025-08-03 11:23 | SUR.PREOP ---
pt is insisting on a foot vein IV. will have her discuss this with anesthesia and proceed as decided
--- NOTE | 2025-08-03 12:03 | SUR.OPER ---
PATIENT QUESTIONS ANSWERED SATISFACTORILY PREOPERATIVELY.? PATIENT BROUGHT TO OR #4 PER CART.? Patient positioned supine on OR #4 bed.? The perioperative?team supported arms bilaterally on arm boards.? Final approval of positioning by surgeon.? CONTINUOUS IRRIGATION OF THE RIGHT KNEE DURING THE PROCEDURE WITH NACL.
[2025-08-03] MEDS: LACTATED RINGERS 1000 ML 1,000 ML 100 ML IV (12:15)
--- NOTE | 2025-08-03 13:06 | W.PM.H&PU ---
History & Physical Update History & Physical Update H&P Reviewed and patient assessed: No changes noted
[2025-08-03] MEDS: CEFAZOLIN 2 GM INJ IVP (13:14)
[2025-08-03] MEDS: ROPIVACAINE 0.5% 30 ML 40 MG INJECTION (13:38)
--- NOTE | 2025-08-03 13:56 | P.ANES_ITS ---
Anesthesia Charges Start Date/Time Anesthesia Start Date: 08/03/25 Anesthesia Start Time: 12:49 Stop Date/Time Anesthesia Stop Date: 08/03/25 Anesthesia Stop Time: 13:52 Coding CPT Codes CPT Codes: ANESTH KNEE JOINT SURGERY - 31015 ([id number]) P3 - PATIENT W/SEVERE SYS DISEASE, QX - REGIONAL CONTROLLER SVC W/ MD MED DIRECTION, QK - PLASTERER SPOT 2-4 CNCRNT ANES PROC
--- NOTE | 2025-08-03 13:56 | P.ANES_ITS ---
Anesthesia Charges Start Date/Time Anesthesia Start Date: 08/03/25 Anesthesia Start Time: 12:49 Stop Date/Time Anesthesia Stop Date: 08/03/25 Anesthesia Stop Time: 13:52 Coding CPT Codes CPT Codes: ANESTH KNEE JOINT SURGERY - 32362 ([id number]) QX - CHILD WELFARE SPECIALIST SVC W/ MD MED DIRECTION, QK - MAJOR ACCOUNT REPRESENTATIVE 2-4 CNCRNT ANES PROC, P3 - PATIENT W/SEVERE SYS DISEASE
--- NOTE | 2025-08-03 13:56 | W.ANESCHARGE ---
Anesthesia Charges Start Date/Time Anesthesia Start Date: 08/03/25 Anesthesia Start Time: 12:49 Stop Date/Time Anesthesia Stop Date: 08/03/25 Anesthesia Stop Time: 13:52 Coding CPT Codes CPT Codes: ANESTH KNEE JOINT SURGERY - 37757 ([id number]) P3 - PATIENT W/SEVERE SYS DISEASE, QX - AIRFREIGHT OPERATIONS AGENT SVC W/ MD MED DIRECTION, QK - FIELD STAFF 2-4 CNCRNT ANES PROC
--- NOTE | 2025-08-03 13:56 | W.ANESCHARGE ---
Anesthesia Charges Start Date/Time Anesthesia Start Date: 08/03/25 Anesthesia Start Time: 12:49 Stop Date/Time Anesthesia Stop Date: 08/03/25 Anesthesia Stop Time: 13:52 Coding CPT Codes CPT Codes: ANESTH KNEE JOINT SURGERY - 21108 ([id number]) QX - ASSEMBLING INSPECTOR SVC W/ MD MED DIRECTION, QK - WHEEL LOADER OPERATOR 2-4 CNCRNT ANES PROC, P3 - PATIENT W/SEVERE SYS DISEASE
[2025-08-03] MEDS: LACTATED RINGERS 1000 ML 1,000 ML 30 ML IV (14:12)
--- NOTE | 2025-08-03 15:03 | P.ORPRC_ITS ---
Procedure Note Date of procedure: 08/03/25 Procedure: PREOPERATIVE DIAGNOSIS: 1. Left knee patellar clunk following prior TKA POSTOPERATIVE DIAGNOSIS: 1. Left knee patellar clunk following prior TKA PROCEDURE: 1. Left knee arthroscopic extensive excisional debridement including debridement of superior pole patella patellar clunk scar, medial and lateral gutter scar tissue, anterior fat pad scar tissue, etc. SURGEON: Yemi Vidal M.D. HUMAN RESOURCES VICE PRESIDENT: BRANT Mcknight. Of note, an surveyor's assistant was critical for this case to aid in patient positioning, knee manipulation, instrument exchange, and closure. ANESTHESIA: General EBL: 2ml TOURNIQUET: 30 min at 300 torr COMPLICATIONS: None evident INDICATIONS: The patient is a pleasant 55-year-old female who has previously undergone a left total knee arthroplasty. While their pain from the preoperative arthritic state has improved, they are now battled some patellar clunk phenomenon in the postoperative time. Initially this was simply an audible noise/palpable feeling, but is become more of a symptomatic process. As such, knee arthroscopy for debridement was recommended. FINDINGS: TKA implants all stable. No evidence of significant scratching or pathology. Regarding the scar, there was abundant scar in the suprapatellar pouch especially at the superior pole patella consistent with patellar clunk. There is also significant scar bands across the medial and lateral gutters especially near the tibial tray overlying the polyethylene component on the edges. All this underwent excisional debridement. DESCRIPTION OF PROCEDURE: After a thorough discussion of risks, benefits, and alternatives, the patient was brought to the operating room and placed upon the operating table. Induction of anesthesia was undertaken as previously noted. 3 g IV Ancef was administered within 1 hr of incision preoperatively. Appropriate time-out was performed identifying proper patient, site, and procedure. The left lower extremity was prepped and draped in the appropriate sterile fashion using ChloraPrep. The limb was exsanguinated and tourniquet inflated. Anterolateral and anteromedial portals were established with an 11 blade, and a diagnostic arthroscopy was performed. This identified the findings as noted above. Following the diagnostic arthroscopy, an extensive excisional debridement was performed with an excaliber shaver and a 50 degree Ellijay cautery device. Following the debridement, the knee was placed through range of motion found have no significant crepitation. At this stage, the shaver was reinserted into the suprapatellar pouch and all remaining debris was evacuated. Instruments were removed, excess fluid was drained, and closure performed with 3-0 Nylon. Dressings were applied, the tourniquet deflated, and the patient was awoken from anesthesia and transferred to the PACU in stable condition. PLAN: 1. Weightbear as tolerated operative extremity. Crutch / walker ambulation assistance PRN. 2. Ice, oral analgesics (e.g. acetaminophen and/or ibuprofen) for pain as needed. 3. Knee range of motion and quad sets/straight leg raise regularly 4. Follow up with PA visit in 1-2 weeks for a wound check and possibly to initiate physical therapy.
--- NOTE | 2025-08-11 14:12 | SUR.PHASEI ---
Verified out of Phase I time and charting complete with Barney LIANG.
== END 2025-08-03 15:40 | disposition home or self-care (01) ==
PROVIDERS: PCP Family Medicine; Visit Provider Orthopaedic Surgery Sports Medicine
PROC: (CPT 29870; principal; 2025-08-03 12:45)
DX: M25.862 Other specified joint disorders, left knee (principal); Z96.652 Presence of left artificial knee joint
CPT/HCPCS: 29877; 01400; J0690; J1100; J2250; J2405; J2704; J2795; J7120